=== PATIENT | female | born 1990 | race Caucasian/White ===

== ENCOUNTER 2016-11-11 00:29 | Emergency (ER) | payer OTHER ==
[2016-11-11 01:36] LABS: URINE BILIRUBIN NEGATIVE (NEGATIVE); URINE BLOOD 4+ (NEGATIVE); URINE GLUCOSE (UA) NEGATIVE (NEGATIVE); URINE LEUKOCYTE ESTERASE 2+ (NEGATIVE); URINE NITRITE POSITIVE (NEGATIVE); URINE PROTEIN 2+ (NEGATIVE); URINE UROBILINOGEN NORMAL (0-1 mg/dl)
[2016-11-11 01:37] LABS: HCG,QUALITATIVE URINE NEGATIVE; URINE APPEARANCE CLOUDY; URINE COLOR YELLOW
[2016-11-11 01:43] LABS: URINE AMORPHOUS SEDIMENT 2+; URINE BACTERIA 3+; URINE EPITHELIAL CELLS FEW /hpf; URINE OTHER FEW YEAST; URINE RBC >100 /hpf; URINE WBC >100 /hpf
[2016-11-11] MEDS ORDERED: PHENAZOPYRIDINE HCL 200 MG TABLET ONE (01:58)
[2016-11-11] MEDS ORDERED: ONDANSETRON 4 MG ODT TAB ONE (01:58)
[2016-11-11] MEDS ORDERED: SULFAMETHOXAZOLE 800 MG/TRIMETHOPRIM 160 MG TABLET ONE (01:58)
== END 2016-11-11 02:24 | disposition home or self-care (01) ==
LOC: ED 00:29
DX: N12 Tubulo-interstitial nephritis, not specified as acute or chronic (principal)
CPT/HCPCS: 81025; 87086; 81001; 99283 ×2; A9270 ×3